=== PATIENT | female | born 1995 | race African-American/Black ===

== ENCOUNTER 2022-01-18 17:59 | Day surgery (SDC) | payer OTHER ==
[2022-01-18 18:04] VITALS: BMI 25.7
[2022-01-18] MEDS ORDERED: ACETAMINOPHEN 1000 MG/100 ML BAG IVPB ONE (19:46)
[2022-01-18] MEDS ORDERED: ACETAMINOPHEN INJECTION 100 ML IVPB ONE (19:55)
[2022-01-18 20:26] LABS: EOS % 1.1 % (0-4.5); HEMATOCRIT 37.6 % (32.4-45.2); HEMOGLOBIN 13.2 GM/dL (10.7-15.3); LYMPH % 31.8 % (8-40); MEAN CELL VOLUME 88.6 fl (80-96); MEAN PLT VOLUME 6.9 fl (7.5-11.1); MONO % 9.2 % (3.8-10.2); NEUT % 56.9 % (42.8-82.8); PLATELET COUNT 269 10^3/uL (134-434); RBC 4.25 M/mm3 (3.60-5.2); RDW 13.2 % (11.6-15.6); WHITE BLOOD COUNT 6.6 K/mm3 (4.0-10.0)
[2022-01-18 21:02] LABS: HCG,QUALITATIVE URINE Positive
[2022-01-18 21:03] LABS: URINE APPEARANCE CLEAR; URINE BILIRUBIN NEGATIVE (NEGATIVE); URINE COLOR YELLOW; URINE GLUCOSE (UA) NEGATIVE (NEGATIVE); URINE KETONE NEGATIVE (NEGATIVE); URINE LEUK ESTERASE NEGATIVE (NEGATIVE); URINE NITRITE NEGATIVE (NEGATIVE); URINE PROTEIN NEGATIVE (NEGATIVE)
[2022-01-18 21:15] LABS: ALBUMIN 3.7 g/dl (3.4-5.0); CALCIUM 8.3 mg/dL (8.5-10.1)
[2022-01-18 21:16] LABS: BLOOD UREA NITROGEN 13.8 mg/dL (7-18)
[2022-01-18 21:19] LABS: CREATININE 0.8 mg/dL (0.55-1.3)
[2022-01-18 21:20] LABS: BILIRUBIN,TOTAL 0.3 mg/dL (0.2-1); TOT PROT 7.8 g/dl (6.4-8.2)
[2022-01-19] MEDS ORDERED: DEXAMETHASONE SOD PHOSPHATE 4 MG/1 ML VIAL ONE (02:21)
[2022-01-19] MEDS ORDERED: KETOROLAC TROMETHAMINE 30 MG/1 ML VIAL ONE (02:21)
[2022-01-19] MEDS ORDERED: LIDOCAINE HCL 2% 100 MG/5 ML DISP.SYRIN ONE (02:21)
[2022-01-19] MEDS ORDERED: ONDANSETRON 4 MG/2 ML VIAL ONE (02:21)
[2022-01-19] MEDS ORDERED: SUCCINYLCHOLINE CHLORIDE 200 MG/10 ML SYRINGE ONE (02:22)
[2022-01-19] MEDS ORDERED: ROCURONIUM BROMIDE 50 MG/5 ML SYRINGE ONE (02:22)
[2022-01-19] MEDS ORDERED: PROPOFOL 20 ML ONE (02:22)
[2022-01-19] MEDS ORDERED: MIDAZOLAM HCL 2 MG/2 ML SINGLE DOSE VIAL ONE (02:24)
[2022-01-19] MEDS ORDERED: ceFAZolin SODIUM 1 GM VIAL IVPB ONE ×2 (03:00→03:30)
[2022-01-19] MEDS ORDERED: BUPIVACAINE HCL/PF 0.5% (5 MG/ML) 30 ML VIAL IJ ONE (03:40)
[2022-01-19] MEDS ORDERED: BUPIVACAINE HCL/PF 0.5% (5MG/ML) 10 ML VIAL ONE (04:36)
[2022-01-19] MEDS ORDERED: ACETAMINOPHEN INJECTION 100 ML IVPB ONE (05:14)
[2022-01-19 07:08] VITALS: RESP 18
[2022-01-19] MEDS ORDERED: ACETAMINOPHEN 1000 MG/100 ML BAG IVPB PRN (07:28)
[2022-01-19] MEDS ORDERED: KETOROLAC TROMETHAMINE 30 MG/1 ML VIAL IVPUSH PRN (07:29)
[2022-01-19] MEDS ORDERED: FAMOTIDINE 20 MG/50 ML IVPB 20 MG/50 ML MG IVPB ONE (07:29)
[2022-01-19] MEDS ORDERED: DEXTROSE 5%-NORMAL SALINE 1,000 ML IV SCH (07:30)
[2022-01-19 09:02] LABS: HEMATOCRIT 39.3 % (32.4-45.2); HEMOGLOBIN 13.9 GM/dL (10.7-15.3); MCH 31.2 pg (25.7-33.7); MCHC 35.5 g/dl (32.0-36.0); MEAN CELL VOLUME 87.8 fl (80-96); MEAN PLT VOLUME 6.7 fl (7.5-11.1); PLATELET COUNT 249 10^3/uL (134-434); RBC 4.48 M/mm3 (3.60-5.2)
[2022-01-19 09:56] LABS: ALBUMIN 3.8 g/dl (3.4-5.0); BLOOD UREA NITROGEN 8.7 mg/dL (7-18); CALCIUM 8.7 mg/dL (8.5-10.1)
[2022-01-19 09:58] LABS: CREATININE 0.6 mg/dL (0.55-1.3)
[2022-01-19 10:00] LABS: BILIRUBIN,TOTAL 0.7 mg/dL (0.2-1)
[2022-01-19 13:10] VITALS: BP 117/72; PULSE 73; TEMP 98.5
== END 2022-01-19 02:00 | disposition home or self-care (01) ==
LOC: JER 17:59 → JDEL 01-19 01:02 → UNDOADMIN 01-19 01:02 → JERBED 01-19 01:02 → JDEL 01-19 02:00 → J5S 01-19 07:16
PROVIDERS: ATTEND Obstetrics & Gynecology
PROC: 0UDB7ZX Extraction of Endometrium, Via Natural or Artificial Opening, Diagnostic (ICD-10-PCS; 2022-01-19)
PROC: 10T24ZZ Resection of Products of Conception, Ectopic, Percutaneous Endoscopic Approach (ICD-10-PCS; principal; 2022-01-19 02:30)
PROC: 0UT64ZZ Resection of Left Fallopian Tube, Percutaneous Endoscopic Approach (ICD-10-PCS; 2022-01-19 02:30)
DX: O00.101 Right tubal pregnancy without intrauterine pregnancy (principal)
CPT/HCPCS: 0241U-QW; 36415; 76817-TC; 80053; 81003; 84702; 84703; 85025; 85027; 86850; 86900; 86901; 88305-TC; 93005; 93010; 94760; 99285-25

== ENCOUNTER 2022-05-03 22:30 | Emergency (ER) | payer OTHER ==
[2022-05-03 22:40] VITALS: BP 124/77; PULSE 110; RESP 18; TEMP 98.1; BMI 25.0
== END 2022-05-03 23:38 | disposition home or self-care (01) ==
LOC: JER 22:30 → JERFT 22:30
DX: Z32.02 Encounter for pregnancy test, result negative (principal)
CPT/HCPCS: 84703; 99282-25